=== PATIENT | female | born 1930 ===

== ENCOUNTER 2022-02-13 08:30 | Outpatient (CLI) | payer MEDICARE, BC | END 2022-02-13 08:31 | disposition home or self-care (01) | LOC: CSHWCC 08:30 | PROVIDERS: ATTEND Nurse Practitioner Family | DX: L89.893 Pressure ulcer of other site, stage 3 (principal); R60.0 Localized edema | CPT/HCPCS: 97139; G0463; 99204 ==

== ENCOUNTER 2022-02-26 10:43 | Outpatient (CLI) | payer MEDICARE, BC | END 2022-02-26 10:44 | disposition home or self-care (01) | LOC: CSHWCC 10:43 | PROVIDERS: ATTEND Nurse Practitioner Family | DX: L89.893 Pressure ulcer of other site, stage 3 (principal); R60.0 Localized edema ==

== ENCOUNTER 2022-03-26 11:09 | Outpatient (CLI) | payer MEDICARE, BC | END 2022-03-26 11:10 | disposition home or self-care (01) | LOC: CSHWCC 11:09 | PROVIDERS: ATTEND Nurse Practitioner Family | DX: L89.893 Pressure ulcer of other site, stage 3 (principal); R60.0 Localized edema | CPT/HCPCS: 97139; G0463; 99213 ==

== ENCOUNTER 2022-04-16 10:44 | Outpatient (CLI) | payer MEDICARE, BC | END 2022-04-16 10:45 | disposition home or self-care (01) | LOC: CSHWCC 10:44 | PROVIDERS: ATTEND Nurse Practitioner Family | DX: L89.93 Pressure ulcer of unspecified site, stage 3 (principal); R60.0 Localized edema ==

== ENCOUNTER 2022-05-14 09:58 | Outpatient (CLI) | payer MEDICARE, BC | END 2022-05-14 09:59 | disposition home or self-care (01) | LOC: CSHWCC 09:58 | PROVIDERS: ATTEND Preventive Medicine Undersea and Hyperbaric Medicine | DX: L89.893 Pressure ulcer of other site, stage 3 (principal); R60.0 Localized edema | CPT/HCPCS: 99213; G0463 ==